=== PATIENT | female | born 1985 | race Caucasian/White ===

== ENCOUNTER 2017-10-25 19:43 | Day surgery (SDC) | payer SELFPAY ==
[2017-10-25 20:40] VITALS: BP 130/70; TEMP 98.7; BMI 29.7
--- NOTE | 2017-10-25 21:37 | PDOC.LDHP ---
Labor and Delivery H&P Chief complaint: contractions HPI: 32 yo @ 40.0 by lmp and 2nd tri US consistent with LMP presents for painful contractions since 11pm last night. Contractions occurring every 4 minutes and have been consistent since 3 am. Pt reports good movement, denies vaginal pain/pressure, denies LOF. No complications with this thus far, she has had majority of her care in [place] and has her records present with her today. Takes PNV daily. Last time taking yesterday. Current gestational age (weeks): 40 (0) Due date: 10/25/17 Dating criteria: last menstrual period, second trimester ultrasound Grav: 1 Para: 0 Current complications: none Abnormal US findings: No Current medications: pre-codi vitamins Previous surgical history: none Social history: none - Physical Exam Vital signs reviewed and normal: yes General: NAD, breathing through contractions Heart: RRR Lungs: CTAB Abdomen: NTTP Extremeties: no edema FHT: category 1, variability present [place] contractions every: 4 min - Vaginal Exam cm dilated: 1 Effacement: 50% Station: -3 - OB Labs Blood type: O RH: positive Antibody Screen: negative HIV: negative RPR: negative HEPSAg: negative 1 hour GCT: unknown GBS: negative Urine drug screen: not done Rubella: immune - Assessment L&D Assessment: term patient in labor (latent labor, primip) - Plan Plan: observation in L&D, other (-Pt given instruction/return to hospital instructions. Will d/c yo home given cervical recheck and no change from previous exam. She was given precautions to return to hospital and is agreeable. She will f/u with her scheduled PNC appointment on Monday and Return to hospital if LOF or increasing contraction frequency/pain or vag bleeding. She lives locally and near the hospital -Po hydrate, return to hospital precautions given -Otherwise f/u with scheduled PNC appointment) <Zia Perales - Last Filed: 10/25/17 22:03> <Dolly Landin - Last Filed: 10/25/17 22:22> Allergies/Adverse Reactions: Allergies Allergy/AdvReac Type Severity Reaction Status Date / Time No Known Allergies Allergy Verified 10/25/17 20:14 Attending Addendum - Attending Addendum Date/Time: 10/25/17 2216 I personally evaluated the patient and discussed the management with Dr. Perales I agree with the History, Examination, Assessment and Plan documented above with any addition or exceptions noted below- 32 nyo @ 40 weeks presented c/o ctx since 3 PM every 5 minutes. Denies any LOF, Small amount of spotting. (+ ) FM. Denies any DINERO. Afebrile VSS Category 1 FHTs. SVE 1/50%/-2/posterior (same as prior exam by nurse). [place] q4-6 minutes. A/P: 1) IUP @ 40 weeks in early labor vs [place] ctx. Given option to walk for an hour or go home. Patient not in acute distress and would like to go home. Labor precautions given. <Dolly Landin - Last Filed: 10/25/17 22:22>
== END 2017-10-25 22:21 | disposition home or self-care (01) ==
LOC: L&D/OP 19:43
PROVIDERS: ATTEND Emergency Medicine
DX: O47.1 False labor at or after 37 completed weeks of gestation (principal); Z3A.40 40 weeks gestation of pregnancy; Z79.899 Other long term (current) drug therapy
CPT/HCPCS: 99283

== ENCOUNTER 2017-10-26 15:42 | Inpatient (IN) | payer MEDICAID, SELFPAY ==
[2017-10-26 15:59] VITALS: BMI 29.8
--- NOTE | 2017-10-26 16:22 | PDOC.LDHP ---
Labor and Delivery H&P Chief complaint: contractions, loss of fluid HPI: 32 y/o @ 40.1 WGA by LMP c/w 24 wk heydi in [place] presents due to ctx and concern for possible LOF. She reports that she was having ctx since 2pm yesterday that were q5min. She was seen here for a labor check and was not dilated. She continued to have ctx, but they spaced out a little to every 8-10 minutes. She said she had some pinkish/red discharge yesterday that has continued and she isn't sure if her water broke. She said she wears a pad and it doesn't soak through her pad, but there is a little bit of the discharge on her pad each time that is pinkish. She was seen at clinic this PM and was reported to be dilated to a 3, so she was sent here. She reports good movement. Current gestational age (weeks): 40 (40w1d) Due date: 10/25/17 Dating criteria: last menstrual period Grav: 1 Para: 0 Current complications: none Abnormal US findings: No Current medications: pre-codi vitamins Social history: none - Physical Exam Vital signs reviewed and normal: yes General: NAD Heart: RRR Lungs: CTAB Abdomen: gravid Extremeties: no edema FHT: category 1, variability present [place] contractions every: 8-10 minutes - Vaginal Exam cm dilated: 4 Effacement: 75% Station: -2 - OB Labs Blood type: O RH: positive Antibody Screen: negative HIV: negative RPR: negative HEPSAg: negative GBS: negative Rubella: immune - Assessment 1. Rule-out term labor Pt was dilated to a 1 last night and was reported to be a 3 in clinic today. Cervical check now is: /-2 Cat I FHT -Will let the patient walk and do another cervical check in 2 hours -Amnisure 2. Rule-out rupture of membranes -Amnisure <Rita Burrows - Last Filed: 10/26/17 16:37> <Geovanny Pierce - Last Filed: 10/26/17 16:43> Allergies/Adverse Reactions: Allergies Allergy/AdvReac Type Severity Reaction Status Date / Time No Known Allergies Allergy Verified 10/26/17 15:59 Attending Addendum - Attending Addendum Date/Time: 10/26/17 0474 I personally evaluated the patient and discussed the management with Dr. Burrows. I agree with and repeated the History, Examination, Assessment and Plan documented above with any addition or exceptions noted below. Agree with plan, allow to walk. Cervical change since checked in clinic. If amnisure positive plan on keeping. If negative recheck in 2 hours with disposition pending. <Geovanny Pierce - Last Filed: 10/26/17 16:43>
[2017-10-26 17:03] LABS: Amnisure Test RUPTURE DETECTED (No Rupture)
[2017-10-26 17:06] LABS: Amnisure Internal Control QC ACCEPTABLE (ACCEPTABLE)
[2017-10-26] MEDS ORDERED: Ondansetron HCl/PF 4 MG/2 ML Vial IVP PRN (17:38)
[2017-10-26] MEDS ORDERED: NS / Oxytocin 40 units/1000ml 1,000 ML IV PRN (17:38)
[2017-10-26] MEDS ORDERED: Promethazine HCl 25 MG/ML VIAL IM PRN (17:38)
[2017-10-26] MEDS ORDERED: Lidocaine 1% (PF) 30 ML VIAL SC PRN (17:38)
[2017-10-26] MEDS ORDERED: Ibuprofen 800 MG TAB PO PRN (17:38)
[2017-10-26] MEDS: Lactated Ringer's 1,000 ML IV SCH (19:05)
[2017-10-26 19:22] LABS: Hemoglobin 13.4 g/dL (12.0-16.0); Mean Corpuscular HGB CONC 35.5 g/dL (32.0-36.0); Mean Corpuscular Hemoglobin 31.3 pg (27.0-31.0); Mean Corpuscular Volume 88.3 fl (81.0-99.0); Mean Platelet Volume 7.9 fL (7.4-10.4); Platelet Count 240 thou/uL (130-400); RBC Distribution Width 11.8 % (11.5-14.5); Red Blood Cell (RBC) Count 4.29 mill/uL (4.20-5.40); White Blood Cell (WBC) Count 12.9 thou/uL (4.8-10.8)
[2017-10-26 20:03] LABS: HBSAg Index 0.19 S/CO (0-0.99); Hep B Surf Ag Non-Reactive S/CO (NonReactive); Syphilis Antibody Nonreactive (Nonreactive); Syphilis Antibody Index 0.04 S/CO (<1.00 Non-Reactive)
[2017-10-26] MEDS ORDERED: LR 500 ML/Oxytocin 10 units 500 ML IV SCH (21:15)
--- NOTE | 2017-10-26 21:16 | PDOC.LDPN ---
Labor & Delivery Progress Note - Objective Vital signs reviewed and normal: yes General: NAD, resting Uterine fundus: non tender SVE: 4.5/C/-1 @7PM FHT: category 1 [place] contractions every: q7-9 minutes -: IUP @40.1 weeks in early labor- Seen last night and was 1 cm now 4.5 cm. Amnisure returned positive- patient does not recall any large gush of fluid. Bag palpable- suspect small leak. Plan for expectant management and if contractions do not increase, will start pitocin for augmentation. Category 1 FHTs.
[2017-10-26] MEDS: NS w/ Oxytocin 10 units 500 ML IV SCH (21:45)
[2017-10-27] MEDS: Lactated Ringer's 1,000 ML IV SCH ×4 (00:19→18:45)
[2017-10-27] MEDS ORDERED: ePHEDrine/0.9% NaCl/PF SYRINGE 50 mg/10 ml SLOW IVP PRN (00:51)
[2017-10-27] MEDS ORDERED: Naloxone HCl 0.4 mg/ml Vial IVP PRN ×3 (00:51→20:17)
[2017-10-27] MEDS ORDERED: Acetaminophen 325 MG TAB PO PRN (00:51)
[2017-10-27] MEDS ORDERED: Lactated Ringer's 500 ML IV PRN (00:51)
[2017-10-27] MEDS ORDERED: diphenhydrAMINE 50 MG/ML VIAL IVP PRN (00:51)
[2017-10-27] MEDS ORDERED: Eucerin (Mineral Oil/Petrolatum,White) 30 gm Jar TOP PRN ×2 (00:51→20:17)
[2017-10-27] MEDS ORDERED: Ondansetron HCl/PF 4 MG/2 ML Vial IVP PRN ×2 (00:51→20:17)
[2017-10-27] MEDS ORDERED: Promethazine HCl 25 MG/ML VIAL IM PRN (00:51)
[2017-10-27] MEDS ORDERED: Fentanyl 4mcg/Marcaine 0.1% Cassette 100 ML EPIDURAL SCH (01:00)
[2017-10-27] MEDS ORDERED: Communication Order-Pharmacy FS SCH ×2 (01:00→20:30)
--- NOTE | 2017-10-27 01:26 | PDOC.LDPN ---
Labor & Delivery Progress Note - Subjective Subjective: painful contractions - Objective Vital signs reviewed and normal: yes SVE: 6/C/-1 (per nurse @ 0035) FHT: category 1 [place] contractions every: q2-4 minutes -: IUP @40.1 weeks with PROM now entering active labor Progressing well. Continue pitocin augmentation Category 1 FHTs Epidural just placed for pain control.
--- NOTE | 2017-10-27 06:25 | PDOC.LDPN ---
Labor & Delivery Progress Note - Subjective Subjective: comfortable - Objective Vital signs reviewed and normal: yes General: NAD SVE: 8/C/-1 (per nurse) FHT: category 1 [place] contractions every: q2-3 minutes Other exam findings: SROM with meconium stained fluid -: IUP@40.2 weeks in active labor- Pitocin @12 mu SROM with meconium stained fluid Category 1 FHTs Continue expectant management.
--- NOTE | 2017-10-27 07:19 | PDOC.LDPN ---
Labor & Delivery Progress Note - Subjective Subjective: comfortable - Objective Vital signs reviewed and normal: yes General: NAD, resting Uterine fundus: palpable contractions SVE: @ 0615 by nurse Nazia Dilation: 8 Effacement: 100% Station: -1 FHT: category 1, variability present [place] contractions every: 3 minutes - Assessment (1) Term Code(s): Z34.80 - ENCOUNTER FOR SUPRVSN OF NORMAL , UNSP TRIMESTER Current Visit: Yes Status: Acute Comment: 32 y/o @ 40.2 WGA 8/100/-1 @ 0615 -Pit @ 12 -Epidural in place -position changes as needed -Will recheck cervix q2h Plan: continue plan of care, pitocin for augmentation <Rita Burrows - Last Filed: 10/27/17 07:16> Attending Addendum - Attending Addendum Date/Time: 10/27/17 0950 Discussed in detail with team. IUPC if no change. Pitocin augmentation, anticpate . Meconium on AROM of forebag. <Geovanny Pierce - Last Filed: 10/27/17 09:50>
[2017-10-27] MEDS: Bupivacaine 0.5% 20 ML, fentaNYL Citrate/PF 400 MCG in Sodium Chloride 0.9% 72 ML EPIDURAL SCH ×2 (08:50→13:20)
[2017-10-27] MEDS ORDERED: Lidocaine 1% (PF) 30 ML VIAL ONE (10:33)
[2017-10-27] MEDS ORDERED: NS / Oxytocin 40 units/1000ml 1,000 ML ONE (10:34)
--- NOTE | 2017-10-27 10:41 | PDOC.LDPN ---
Labor & Delivery Progress Note - Subjective Subjective: other (feeling pressure) - Objective Vital signs reviewed and normal: yes General: NAD, resting Uterine fundus: non tender Dilation: AL/C/+1, thin mec, IUPC in place FHT: category 1 (150's, mod jet, + accels, - decels), variability present AROM: meconium stained fluid Plan: continue plan of care, labor augmentation (Recheck in 2 hours)
[2017-10-27] MEDS: NS w/ Oxytocin 10 units 500 ML IV SCH (12:45)
--- NOTE | 2017-10-27 12:52 | PDOC.LDPN ---
Labor & Delivery Progress Note - Subjective Subjective: comfortable - Objective Vital signs reviewed and normal: yes General: NAD SVE: c/c/+1, mild caput FHT: category 1 (+accels, - decels, mod jet) [place] contractions every: q2-3m Plan: other (will begin pushing)
--- NOTE | 2017-10-27 13:46 | PDOC.LDPN ---
Labor & Delivery Progress Note - Subjective Subjective: comfortable - Objective Vital signs reviewed and normal: yes General: resting Uterine fundus: non tender Dilation: complete Effacement: 100% Station: 1+ FHT: category 1 (150/mod/+accel/no decel) [place] contractions every: 2-5 minutes Plan: continue plan of care -: Will labor down and recheck in 1 hour unless feeling pressure to push sooner <Daylin Patel - Last Filed: 10/27/17 13:45> Attending Addendum - Attending Addendum Date/Time: 10/27/17 1710 I personally evaluated the patient and discussed the management with Dr. Patel. I agree with and repeated the History, Examination, Assessment and Plan documented above with any addition or exceptions noted below. <Geovanny Pierce - Last Filed: 10/27/17 17:11>
[2017-10-27] MEDS ORDERED: Dexamethasone 20 MG/5 ML VIAL ONE (14:32)
--- NOTE | 2017-10-27 15:07 | PDOC.LDPN ---
Labor & Delivery Progress Note - Subjective Subjective: comfortable - Objective Vital signs reviewed and normal: yes General: resting Uterine fundus: non tender Dilation: complete Effacement: 100% Station: 0 FHT: category 1 (150/moderate/no accel/no decel) Plan: continue plan of care -: Will discuss trial of pushing vs. laboring down. <Daylin Patel - Last Filed: 10/27/17 15:03> Attending Addendum - Attending Addendum Date/Time: 10/27/17 1712 I personally evaluated the patient and discussed the management with Dr. Patel. I agree with the History, Examination, Assessment and Plan documented above with any addition or exceptions noted below. <Geovanny Pierce - Last Filed: 10/27/17 17:12>
--- NOTE | 2017-10-27 15:39 | PDOC.LDPN ---
Labor & Delivery Progress Note - Subjective Subjective: comfortable (endorsing some R lower back pain) - Objective Vital signs reviewed and normal: yes General: resting Uterine fundus: non tender Dilation: complete, with some noted edema of anterior cervix Effacement: 100% Station: 0 FHT: category 1 (150/mod/no accel/no decel) [place] contractions every: 6+ minutes Resuscitative measures: maternal position change -: Will turn off pitocin and re-assess in 1 hour. <Daylin Patel - Last Filed: 10/27/17 15:37> Attending Addendum - Attending Addendum Date/Time: 10/27/17 3482 I personally evaluated the patient and discussed the management with Dr. Patel. I agree with the History, Examination, Assessment and Plan documented above with any addition or exceptions noted below. Upon reexamination she now has an anterior lip after previously being complete. Contractions are q6-7 minute despite increasing pitocin. Category 1 FHTs. Will trial pit break and reassess. <Geovanny Pierce - Last Filed: 10/27/17 17:14>
--- NOTE | 2017-10-27 17:17 | PDOC.LDPN ---
Labor & Delivery Progress Note - Objective Vital signs reviewed and normal: yes General: NAD Uterine fundus: non tender SVE: AL/c/0 FHT: category 1 (mod jet, + accels, no decels) [place] contractions every: q10m Plan: other (pt prolonged ROM, MSAF, with worsening edema of AL despite laboring down. I have broached the topic of for failure to progress but she would like to attempt pitocin. We will reassess after restarting. )
--- NOTE | 2017-10-27 18:05 | PDOC.EVN ---
Event Note - Event Note Event Note: Handoff given to Dr. Zimmer who will be assuming care.
[2017-10-27] MEDS ORDERED: Adacel (T-DAP) 0.5 ML VIAL IM ONE (18:14)
[2017-10-27] MEDS ORDERED: Bicitra 30 ML UDCUP PO SCH (18:15)
[2017-10-27] MEDS ORDERED: CEFAZOLIN/Water 2 GM/20 ML SYRINGE SLOW IVP SCH (18:15)
[2017-10-27] MEDS ORDERED: Fentanyl 100 MCG/2 ML VIAL ONE (18:50)
[2017-10-27] MEDS ORDERED: Oxytocin 10 UNITS/ML VIAL ONE (18:51)
[2017-10-27] MEDS ORDERED: Morphine PF 1 MG/ML SYR ONE (18:51)
[2017-10-27] MEDS: Azithromycin 500 MG in Sodium Chloride 0.9% 250 ML 250 ML IVPB SCH (19:05)
[2017-10-27] MEDS ORDERED: Misoprostol 200 MCG TAB ONE ×2 (19:21)
[2017-10-27] MEDS ORDERED: Ketorolac Tromethamine 30 MG/ML VIAL ONE (19:33)
[2017-10-27] MEDS ORDERED: Dexamethasone 4 mg/ml Vial ONE (19:33)
[2017-10-27 20:00] LABS: Actual Bicarbonate (HCO3v) 26 mEq/L (22-26)
[2017-10-27 20:01] LABS: Base Excess -5.2 mEq/L (0 (+/- 2.5))
--- NOTE | 2017-10-27 20:51 | OP ---
DATE OF PROCEDURE: 10/27/2017 TIME OF SERVICE: Approximately 2000 hours. CONSULTING PHYSICIAN: Pablo Pollock M.D., OB Hospitalist. REQUESTING PHYSICIAN: Ines Zimmer D.O., Family Medicine Residency attending. REASON FOR CONSULTATION: Intraoperative hemorrhage. SUMMARY OF CONSULTATION AND OPERATIVE PROCEDURE: I was consulted intraoperatively for a left and rig ht uterine extension. The patient has been with deep arrest at approximately 9-10 cm. Some difficul ty in getting the head elevated and out of the hysterotomy had been encountered and a significa nt amount of bleeding was noted. Upon inspecting the uterus, the hysterotomy went as far as essentia lly to the uterine vessels bilaterally just above the level of the internal cervical os. There was a small amount of extension of that hysterotomy posteriorly; however, it did not go through the serosa of the uterus posteriorly instead only involving the inner aspect of the myometrium of the posterior uterus and cervix. Bladder was noted to be well down and this was well above the level that the ure ter would be encountered. I placed at this time a suture that had already been placed around the pat ient's right uterine vessels and moderate hemostasis obtained. I placed a suture around the uterine vessels and reapproximated this posterior aspect of laceration on the patient's left and then ran it in a 3/4 thickness manner along the hysterotomy from left to right. Inspection through the level of the hysterotomy revealed no further bleeding noted at the level of the small extensions posteriorly b ilaterally. The hysterotomy was then closed in a second layer running locking from left to right. G ood hemostasis was noted and then FloSeal was applied with pressure applied for 3 minutes. The patie nt's urine had been blood tinged preoperatively and was the same currently. At this point in time, I left the case. Estimated blood loss was approximately 1500 mL with approximately 300 mL during my p ortion of the procedure.
--- NOTE | 2017-10-27 20:54 | PDOC.OPDEL ---
OB Operative/Delivery Note - Additional Findings/Plan Compilations/Other Findings: Procedure Note Date of Procedure: 10/27/17 Resident Surgeon: Juliocesar Lozada MD Diagram Clerk Surgeon: Zia Perales DO Attending Surgeon: Ines Zimmer MD Laborist Assist: Pablo Pollock MD Procedure: 1)Primary low transverse caesarean section 2)Repair of bilateral extensions involving posterior myometrium Preoperative Diagnoses: 1)Term intrauterine 2)Prolonged rupture of membranes 3)PROM 4)Arrest of labor 5)Incomplete care Postoperative Diagnoses: 1)same as above plus-- 2) hemorrhage secondary to uterine extension Anesthesia: epidural Indications: The patient is a 32 year old G1,P0 female at 40.2 weeks gestation who presented after premature rupture of membranes and required medically indicated unscheduled secondary to arrest of labor. Procedure in Detail: After risks, benefits, and alternatives were explained to the patient, she gave informed consent. Pre-operative antibiotics included Cefazolin 2 gram IV and Azithromycin 500mg. The patient was taken to the operating room and epidural anesthesia was continued. She was placed in the supine position with a left tilt and prepped and draped in usual sterile fashion. A Pfannenstiel incision was made with a scalpel and carried down to the level of the fascia which was sharply nicked. The fascial cut was extended bilaterally with [place] scissors. The inferior and superior edges of the cut fascial edges were elevated with Albert clamps and the underlying rectus muscles were sharply and bluntly dissected free. The recti were divided digitally and retracted manually. The peritoneum was entered bluntly and retracted manually. A score was made with the scalpel at the upper border of a very thin lower uterine segment, and the uterus was entered in the midline with the scalpel. Clear fluid was seen. The hysterotomy was extended manually in a cephalocaudal direction. Initial presenting part was an arm, which was reduced, and the was then noted to be vertex and delivered by fundal pressure @ 1936. Cord clamped and cut, and hypotonic appearing male infant was quickly handed to waiting nurse. Cord segment and cord blood were obtained. Placenta was manually extracted, found to be intact with 3 vessel cord and sent for pathology. The uterus was externalized and the endometrium was curetted with a dry lap. The uterus was noted to have bilateral extensions involving the posterior myometrium. The bladder blade was replaced, and at this point, we began closure but called for laborist assistance. After Dr. Pollock arrived, he proceeded to assist us with a two layer closer of the uterus with a running locking #1 monocryl suture. Following this, initial hemostasis was noted. The uterus was internalized. We irrigated over the hysterotomy closure and suctioned the area free of clots. The area posterior to the uterus was also visualized and noted to be free of any active bleeding. The hysterotomy was again noted to be hemostatic, but because of the degree of blood loss after the uterine extensions, we elected to add FLOSEAL hemostatic matrix over the closure. The fascia was the closed with a running non-locking 0-PDS suture. The subcutaneous tissue was irrigated and there were no bleeders. Several interrupted sutures were used to approximate the subcutaneous layer. The skin was then closed with 4-0 monocryl dressing was placed. All counts were correct. The patient tolerated the procedure well and was taken to the recovery room in stable condition. Estimated Blood Loss: 2,000 mL Complications: As above Specimens: Cord gas and cord blood sent to lab Findings: Male with apgars of 3, 9, and 9. Grossly normal placenta with 3 vessel cord sent for pathology. Drains: [place] to gravity draining clear urine.
[2017-10-27] MEDS ORDERED: CEFAZOLIN 1 GM in Sodium Chloride 0.9% 100 ML IVPB SCH (21:15)
[2017-10-27 21:56] LABS: INR-International Normal Ratio 1.1; Prothrombin Time 14.4 SEC (12.0-14.7)
[2017-10-27 22:01] LABS: Hemoglobin 9.9 g/dL (12.0-16.0); Mean Corpuscular HGB CONC 35.2 g/dL (32.0-36.0); Mean Corpuscular Hemoglobin 31.6 pg (27.0-31.0); Mean Corpuscular Volume 89.8 fl (81.0-99.0); Mean Platelet Volume 7.3 fL (7.4-10.4); Platelet Count 192 thou/uL (130-400); RBC Distribution Width 11.7 % (11.5-14.5); Red Blood Cell (RBC) Count 3.14 mill/uL (4.20-5.40); White Blood Cell (WBC) Count 19.9 thou/uL (4.8-10.8)
[2017-10-27] MEDS: Ibuprofen 800 MG TAB PO SCH (22:35)
--- NOTE | 2017-10-28 01:54 | PDOC.PP ---
Post Progress Note Post Day #: 1 Subjective: 32 YO G1 now P1 delivered @ 2130 via PLTCS 2/ AOL. Complicated by PPH. Initial Hgb pp 9.9. Currently she reports she is doing well and has no complaints. Denies cp, sob, dizziness, headache. Her vitals have remained stable since after delivery and her HR has progressively dropped to normal range with stabilization of her BP to the 100-110s systolic. PO intake tolerated: yes Flatus: no Ambulation: no Vital Signs (12 hours) Temp Pulse Resp BP BP 10/28/17 00:50 99.1 F 81 18 102/52 L 10/27/17 23:45 98.3 F 88 20 125/61 10/27/17 22:45 98.3 F 97 20 122/61 10/27/17 19:17 99.5 F 101 H 18 Weight Weight 73.936 kg - Physical Examination General: NAD Cardiovascular: no m/r/g, RRR Respiratory: clear to auscultation bilaterally, non-labored breathing Abdominal: + bowel sounds, appropriately TTP Neurological: no gross focal deficits Psychiatric: normal affect Result Diagrams: 10/27/17 21:31 Additional Labs: Post Labs Blood Type O POSITIVE 10/26/17 19:05 Hep Bs Antigen Non-Reactive S/CO (NonReactive) 10/26/17 19:05 (1) delivery delivered Code(s): O82 - ENCOUNTER FOR DELIVERY WITHOUT INDICATION Status: Acute (2) hemorrhage Code(s): O72.1 - OTHER IMMEDIATE HEMORRHAGE Status: Acute - Assessment/Plan 1) delivery of TIUP: Continue PP care and pain control. Additional 1 gram ancef given post . VSS. 2) PPH: Approx 1.5L blood loss. initial hgb pp 9.9. Recheck @ 0330. Transfuse if <7 or pt becomes symptomatic, currently vss. <Zia Perales - Last Filed: 10/28/17 01:52> Vital Signs (12 hours) Temp Pulse Resp BP 10/28/17 12:00 97.7 F 108 H 20 102/57 L 10/28/17 08:52 98.9 F 109 H 20 105/63 10/28/17 08:00 98.9 F 109 H 20 10/28/17 06:20 20 Weight Weight 73.936 kg Result Diagrams: 10/28/17 03:40 Additional Labs: Post Labs Blood Type O POSITIVE 10/26/17 19:05 Hep Bs Antigen Non-Reactive S/CO (NonReactive) 10/26/17 19:05 <Ines Zimmer - Last Filed: 10/28/17 16:40> Attending Addendum - Attending Addendum Date/Time: 10/28/17 0200 I personally evaluated the patient and discussed the management with Dr. Perales I agree with the History, Examination, Assessment and Plan documented above with any addition or exceptions noted below. 32 yo female s/p complicated LTCS 2/2 prolonged 2nd stage arrest at 10 cm. Patient doing well. Asymptomatic. Lochia minimal. VSS. Pain controlled. Good UOP. Tolerating liquids. Bandage is clean and dry. 1. Prolonged PROM ~32 hours: Monitor for s/sx of infection. None at present. Due to hemorrhage re-dosed antibiotics. 2. LTCS with bilateral extensions involving perforating uterine vessels: Do not recommend TOLAC. Have discussed with patient at length along with family members. 3. PPH: EBL 1500 mL to 2L. Currently asymptomatic. Start iron. Blood placed on hold prior to section due to risk. Postop H&H appropriate drop due to estimated loss. Will continue to monitor. VSS. BP at baseline. Lochia mild to minimal. 4. Breast feeding 5. Contraception: to discuss further with PCP. Joselin <Ines Zimmer - Last Filed: 10/28/17 16:40>
[2017-10-28 04:08] LABS: Hemoglobin 9.4 g/dL (12.0-16.0); Mean Corpuscular HGB CONC 34.9 g/dL (32.0-36.0); Mean Corpuscular Hemoglobin 31.3 pg (27.0-31.0); Mean Corpuscular Volume 89.7 fl (81.0-99.0); Mean Platelet Volume 7.5 fL (7.4-10.4); Platelet Count 213 thou/uL (130-400); RBC Distribution Width 11.8 % (11.5-14.5); Red Blood Cell (RBC) Count 3.01 mill/uL (4.20-5.40); White Blood Cell (WBC) Count 19.8 thou/uL (4.8-10.8)
[2017-10-28] MEDS: Ibuprofen 800 MG TAB PO SCH ×2 (07:19→22:16)
[2017-10-28] MEDS ORDERED: Bupivacaine HCl 0.5%/Epinephrine 1:200,000/PF 30 ml Vial ONE (07:40)
[2017-10-28] MEDS ORDERED: Bupivacaine 0.5% 10 ML VIAL ONE (07:40)
--- NOTE | 2017-10-28 08:10 | PDOC.PP ---
Post Progress Note Post Day #: 1 Subjective: Pt doing well. Mild right sided pain. Would like to eat this AM. Has not walked yet. No cp/sob/palps. No cp/sob/n/v/f/c. Vital Signs (12 hours) Temp Pulse Resp BP BP 10/28/17 06:20 20 10/28/17 04:10 98.4 F 97 20 96/51 L 10/28/17 02:05 20 10/28/17 00:50 99.1 F 81 18 102/52 L 10/27/17 23:45 98.3 F 88 20 125/61 10/27/17 22:45 98.3 F 97 20 122/61 Weight Weight 73.936 kg - Physical Examination General: NAD Cardiovascular: no m/r/g, RRR Respiratory: clear to auscultation bilaterally, non-labored breathing Abdominal: + bowel sounds Extremities: negative homans (B) Skin: CS incision dry & intact, no rash Neurological: no gross focal deficits Psychiatric: A&Ox3, normal affect Result Diagrams: 10/28/17 03:40 Additional Labs: Post Labs Blood Type O POSITIVE 10/26/17 19:05 Hep Bs Antigen Non-Reactive S/CO (NonReactive) 10/26/17 19:05 (1) hemorrhage Code(s): O72.1 - OTHER IMMEDIATE HEMORRHAGE Status: Acute (2) delivery delivered Code(s): O82 - ENCOUNTER FOR DELIVERY WITHOUT INDICATION Status: Acute - Assessment/Plan Pt doing well. S/p CD 2/2 arrest @ 10 cm with PPH -hgb stable, no indication for transfusion -iron, pain control -ambulate today
[2017-10-28] MEDS ORDERED: Non-Formulary Item 1 EACH (Prenatal 21/Iron Fu/Folic Acid [Prenatal Complete Caplet] 1 TA PO SCH (09:00)
[2017-10-28] MEDS: Prenatal Vitamin 1 TAB PO SCH (09:26)
[2017-10-28] MEDS: Iron Polysaccharides Complex 150 MG CAP PO SCH (09:31)
[2017-10-28] MEDS: Lactated Ringer's 1,000 ML IV SCH ×2 (10:22→18:05)
[2017-10-28] MEDS: HYDROcodone/Acetaminophen 5/325 mg Tablet PO PRN ×2 (15:11→20:30)
[2017-10-28] MEDS: Azithromycin 500 MG in Sodium Chloride 0.9% 250 ML 250 ML IVPB SCH (18:38)
[2017-10-29] MEDS: NS w/ Oxytocin 10 units 500 ML IV SCH ×2 (02:53→22:58)
[2017-10-29] MEDS: Lactated Ringer's 1,000 ML IV SCH ×3 (02:53→16:31)
[2017-10-29 05:40] LABS: Hemoglobin 8.4 g/dL (12.0-16.0); Mean Corpuscular Hemoglobin 30.9 pg (27.0-31.0); Mean Corpuscular Volume 90.9 fl (81.0-99.0); Mean Platelet Volume 7.3 fL (7.4-10.4); Platelet Count 201 thou/uL (130-400); RBC Distribution Width 11.9 % (11.5-14.5); Red Blood Cell (RBC) Count 2.73 mill/uL (4.20-5.40); White Blood Cell (WBC) Count 12.6 thou/uL (4.8-10.8)
[2017-10-29] MEDS: Ibuprofen 800 MG TAB PO SCH ×3 (05:55→22:23)
--- NOTE | 2017-10-29 08:52 | PDOC.PP ---
Post Progress Note Post Day #: 2 Subjective: Pt doing well, no BM, but +gas, tolerating PO well and ambulating well. No cp/ sob/n/v/f/c. Abd with mild pain over incision. Moderate lochia. Has been having a bit of trouble . PO intake tolerated: yes Flatus: yes Ambulation: yes Vital Signs (12 hours) Temp Pulse Resp BP BP Pulse Ox 10/29/17 08:00 98.7 F 84 16 100/50 L 99 10/29/17 05:05 98.3 F 76 20 105/55 L 99 10/29/17 00:15 98.8 F 94 20 102/53 L 98 10/28/17 21:20 98.8 F 98 20 98 Weight Weight 73.936 kg - Physical Examination General: NAD Cardiovascular: no m/r/g, RRR Respiratory: clear to auscultation bilaterally, non-labored breathing Abdominal: + bowel sounds, no distention, appropriately TTP Extremities: negative homans (B) Skin: CS incision dry & intact, no rash Neurological: no gross focal deficits Psychiatric: A&Ox3, normal affect Result Diagrams: 10/29/17 05:09 Additional Labs: Post Labs Blood Type O POSITIVE 10/26/17 19:05 Hep Bs Antigen Non-Reactive S/CO (NonReactive) 10/26/17 19:05 (1) hemorrhage Code(s): O72.1 - OTHER IMMEDIATE HEMORRHAGE Status: Acute (2) delivery delivered Code(s): O82 - ENCOUNTER FOR DELIVERY WITHOUT INDICATION Status: Acute - Assessment/Plan Progressing well. Will stay overnight. Continue iron, pain control. Will add stool softener if not already on. to see if available tomorrow. Ambulate at least TID.
[2017-10-29] MEDS: Docusate 100 MG CAP PO PRN ×2 (09:18→22:23)
[2017-10-29] MEDS: Iron Polysaccharides Complex 150 MG CAP PO SCH (09:20)
[2017-10-29] MEDS: Prenatal Vitamin 1 TAB PO SCH (09:30)
[2017-10-29] MEDS: Azithromycin 500 MG in Sodium Chloride 0.9% 250 ML 250 ML IVPB SCH (18:41)
[2017-10-30] MEDS: Lactated Ringer's 1,000 ML IV SCH ×3 (03:05→17:52)
[2017-10-30] MEDS: Ibuprofen 800 MG TAB PO SCH ×2 (05:47→14:27)
[2017-10-30 08:43] VITALS: BP 112/57; TEMP 98.6
[2017-10-30] MEDS: Iron Polysaccharides Complex 150 MG CAP PO SCH (08:44)
[2017-10-30] MEDS: Prenatal Vitamin 1 TAB PO SCH (08:45)
[2017-10-30] MEDS ORDERED: Azithromycin 250 MG TAB PO SCH (09:00)
== END 2017-10-30 18:40 | disposition home or self-care (01) | DRG 765 ==
LOC: L&D/OP 15:42 → L&D 17:47 → 3SW 10-27 22:36
PROVIDERS: ADMIT Emergency Medicine; ATTEND Emergency Medicine
PROC: 10D00Z1 Extraction of Products of Conception, Low, Open Approach (ICD-10-PCS; principal; 2017-10-27)
DX: O62.1 Secondary uterine inertia (principal); O72.1 Other immediate postpartum hemorrhage; O42.90 Premature rupture of membranes, unspecified as to length of time between rupture and onset of labor, unspecified weeks of gestation; O62.0 Primary inadequate contractions; Z3A.40 40 weeks gestation of pregnancy; Z37.0 Single live birth
CPT/HCPCS: 36415; 51702; 82805; 84112; 85027; 85610; 85730; 86780; 86850; 86900; 86901; 87340; 88307; 99285; A4216; J0456; J0670; J0690; J1100; J1885; J2001; J2274; J2590; J3010; J3490; J7050; J7120